=== PATIENT | male | born 1995 | race Caucasian/White ===

== ENCOUNTER → 2017-05-14 | Outpatient (CLI) | payer BC ==
--- NOTE | 2017-05-14 14:12 | RADIOLOGY REPORT (SQ) ---
EXAM DESCRIPTION: CT FACIAL AREA WITHOUT COMPLETED DATE/TIME: 05/14/2017 1:17 pm REASON FOR STUDY: NASAL POLYP, ANOSMIA, CHRONIC RHINITIS J33.9 NASAL POLYP, UNSPECIFIED R43.0 ANOS ASHLY J31.0 CHRONIC RHINITIS COMPARISON: None. TECHNIQUE: Noncontrasted images through the facial bones and orbits windowed for bone and soft tissu e. Additional coronal and sagittal reconstructed images reviewed. All images stored on PACS. All CT scanners at this facility use dose modulation, iterative reconstruction, and/or weight based d osing when appropriate to reduce radiation dose to as low as reasonably achievable (ALARA). [facility]: Dose Right [facility]: CareDose [facility]: Dose Right [facility]: Teradose 4D [facility]: [employer] RADIATION DOSE: 44.7mGy. LIMITATIONS: None. FINDINGS: FACIAL BONES: No fracture or bone lesion. ORBITS: Intact. No fracture. Symmetric intact globes and retroorbital soft tissues. PARANASAL SINUSES: There is almost complete opacification of the maxillary sinuses. The ethmoid air cells are opacified. The sphenoid sinuses are opacified. The frontal sinuses are opacified. There i s marked thickening in the nasal mucosa on the right. SOFT TISSUES: No mass or edema. INFERIOR BRAIN: Limited view. No acute findings. OTHER: No other significant finding. IMPRESSION: Pansinusitis. Findings as described. TECHNICAL DOCUMENTATION: JOB ID: [id number] Quality ID # [id number]: Final reports with documentation of one or more dose reduction techniques (e.g., Au tomated exposure control, adjustment of the mA and/or kV according to patient size, use of iterative reconstruction technique) 2010 [employer]- All Rights Reserved
== END ==
LOC: RAD 12:57
PROVIDERS: ATTEND Allergy & Immunology
DX: J33.9 Nasal polyp, unspecified (principal); R43.0 Anosmia; J31.0 Chronic rhinitis
CPT/HCPCS: 70486

== ENCOUNTER → 2017-08-06 | Outpatient (CLI) | payer BC ==
--- NOTE | 2017-08-06 15:44 | RADIOLOGY REPORT (SQ) ---
EXAM DESCRIPTION: CT SINUSES FOR ENT COMPLETED DATE/TIME: 08/06/2017 2:46 pm REASON FOR STUDY: NASAL POLYPS J33.9 NASAL POLYP, UNSPECIFIED COMPARISON: CT of the sinuses 05/14/2017 TECHNIQUE: Noncontrast scanning through the paranasal sinuses using bone algorithm. Reconstructed MPR images reviewed. All images stored on PACS. Images acquired for image guided surgery. All CT scanners at this facility use dose modulation, iterative reconstruction, and/or weight based d osing when appropriate to reduce radiation dose to as low as reasonably achievable (ALARA). [facility]: Dose Right [facility]: CareDose [facility]: Dose Right [facility]: Teradose 4D [facility]: [employer] RADIATION DOSE: 46.6 mGy. FINDINGS: NASAL PASSAGES: Near completely opacified. Only a small amount of aeration in the inferio r left nasal cavity present. OSTEOMEATAL UNITS AND NASOFRONTAL DUCTS: Ostiomeatal complexes are demineralized. There is complete opacification with soft tissue. These findings are best shown on coronal series 501, images 18-23. Bilateral nasofrontal ducts are completely opacified and bony outlines of the nasofrontal ducts are d emineralized on coronal series 501, images 16-20. MAXILLARY SINUSES: Completely opacified ETHMOID SINUSES: Completely opacified SPHENOID SINUSES: Completely opacified No sphenoethmoid air cells or pneumatized pterygoid recess. No pneumatized dorsal sella. FRONTAL SINUSES: Completely opacified MASTOID AIR CELLS: Clear. ORBITS: Normal and symmetrical. NASAL SEPTUM: Mild leftward nasal septal deviation bony spurring along the inferior half, best shown on coronal series 501, image 24. Small left nasal septal spur TEMPOROMANDIBULAR JOINTS: Normal. TURBINATES: No pneumatized turbinates. MUCOPERIOSTEAL THICKENING: Diffuse mucoperiosteal thickening in the frontal, sphenoid and maxillary sinuses MUCOCELE: No. OTHER: No other significant findings. IMPRESSION: Pansinusitis as above TECHNICAL DOCUMENTATION: JOB ID: [id number] Quality ID # [id number]: Final reports with documentation of one or more dose reduction techniques (e.g., Au tomated exposure control, adjustment of the mA and/or kV according to patient size, use of iterative reconstruction technique) 2010 [employer]- All Rights Reserved
== END ==
LOC: RAD 14:23
PROVIDERS: ATTEND Otolaryngology
DX: J33.9 Nasal polyp, unspecified (principal); J32.4 Chronic pansinusitis
CPT/HCPCS: 70486

== ENCOUNTER 2017-09-25 06:34 | Day surgery (SDC) | payer BC, OTHER ==
[~2017-09-25 06:34] MED LIST: CEFAZOLIN 2 GM/D5W RTU 2 GM/50 ML RTUPB IV PRN
[2017-09-25] MEDS ORDERED: FENTANYL CITRATE INJ/PF 100 MCG/2 ML AMPUL ONE ×2 (06:48→07:57)
[2017-09-25] MEDS ORDERED: MIDAZOLAM 2 MG/2 ML INJ ONE (06:48)
[2017-09-25] MEDS ORDERED: CARBOXYMETHYLCELLULOSE SOD 0.5% 0.4 ML DROPERETTE ONE (06:48)
[2017-09-25] MEDS ORDERED: ONDANSETRON HCL INJ/PF 4 MG/2 ML SDV ONE (06:49)
[2017-09-25] MEDS ORDERED: LIDOCAINE 2% INJ-PF (20 MG/ML) 10 ML AMPUL ONE (06:49)
[2017-09-25] MEDS ORDERED: DEXAMETHASONE SOD PHOS INJ 10 MG/1 ML VIAL ONE (06:49)
[2017-09-25] MEDS ORDERED: SUCCINYLCHOLINE CHLORIDE INJ 200 MG/10 ML VIAL ONE (06:50)
[2017-09-25] MEDS ORDERED: PROPOFOL INJ 200 MG/20 ML VIAL IV ONE (06:50)
[2017-09-25] MEDS ORDERED: ROCURONIUM BROMIDE INJ 50 MG/5 ML VIAL IV ONE (06:50)
[2017-09-25] MEDS ORDERED: DIPHENHYDRAMINE HCL 50 MG/ML VIAL ONE (07:00)
[2017-09-25] MEDS ORDERED: BUPIVACAINE HCL 0.5%/EPI 1:200000 INJ 1.8 ML CARTRIDGE ONE (07:07)
[2017-09-25] MEDS ORDERED: OXYMETAZOLINE HCL 0.05% NASAL SPRAY 15 ML BOTTLE ONE ×2 (07:07→09:04)
[2017-09-25] MEDS ORDERED: DEXMEDETOMIDINE INJ 80 MCG/20 ML VIAL IV ONE (07:57)
[2017-09-25] MEDS ORDERED: BUPIVACAINE HCL 0.5%-EPI 1:200000 INJ/PF 30 ML VIAL ONE (07:58)
--- NOTE | 2017-09-25 21:48 | [facility] OPERATIVE REPORT E ---
[facility] Operative Report NAME: TRISHA MONTANO AGE: 22Y DATE OF SURGERY: 09/25/2017 ROOM: PREOPERATIVE DIAGNOSES: 1. CHRONIC NASAL SINUS POLYP DISEASE. 2. PANSINUSITIS. 3. CHRONIC NASAL DYSPNEA. 4. NASAL SEPTAL DEVIATION, ACQUIRED. 5. BILATERAL INFERIOR TURBINATE HYPERTROPHY. POSTOPERATIVE DIAGNOSES: 1. CHRONIC NASAL SINUS POLYP DISEASE. 2. PANSINUSITIS. 3. CHRONIC NASAL DYSPNEA. 4. NASAL SEPTAL DEVIATION, ACQUIRED. 5. BILATERAL INFERIOR TURBINATE HYPERTROPHY. OPERATION PERFORMED: 1. Bilateral image guidance functional endoscopic sinus surgery with rigid surgical endoscopy. 2. Bilateral nasal polypectomies with tissue removal as specimen with rigid surgical endoscopy. 3. Bilateral maxillary antrostomies with tissue removal with rigid surgical endoscopy. 4. Bilateral total ethmoidectomies with tissue removal (anterior and posterior ethmoidectomies), with rigid surgical endoscopy. 5. Bilateral frontal sinusotomies. 6. Bilateral sphenoidotomies. 7. Septoplasty. 8. Bilateral inferior turbinate reduction using a submucous resection technique. 9. Bilateral middle turbinate reduction with rigid surgical endoscopy. SURGEON: DYANA CHOI D.O. ANESTHETIC: General endotracheal tube. ANESTHESIA STAFF: Andre Peña CRNA COMPLICATIONS: None. DRAINS: None. SPONGE COUNT: Verified. NEEDLE COUNT: Verified. MATERIALS FORWARDED SPECIMEN: 1. Bilateral maxillary sinus tissue/polyp tissue. 2. Bilateral anterior and posterior ethmoid sinus tissue/polyp tissue. 3. Bilateral nasal passage polyp tissue. FINDINGS: 1. Extensive nasal sinus polyp disease, right greater than left. On the right, nasal polyps were encountered at the nasal vestibule and extended through to the nasopharynx and all sinuses were involved. 2. On the left, there was extensive sinus and nasal polyp disease as well with all sinuses involved and most of the left nasal passage. 3. Nasal septal deviation involving bone and cartilage. 4. Bilateral inferior turbinate hypertrophy. 5. The middle turbinates were excessively floppy in nature as polyps were debrided and they were obstructing the maxillary antrostomy and ethmoidectomy surgical sites and therefore, the anterior aspect on each side was resected. INDICATIONS: This is a 22-year-old white male who was seen and evaluated in the [place] [facility] office. The patient had been referred for and he complained of a longstanding history of sinus and nasal polyp disease over the years. The patient reports severe difficulty with nasal breathing, and has poor sense of smell and taste. The patient has wanted to have these issues addressed over the years. CT sinus imaging was obtained with pansinusitis noted and extensive sinus and nasal polyp disease noted. Clinic endoscopy revealed extensive bilateral nasal polyp disease. After extensive discussion with the patient, recommendation and plan was to proceed with image guidance functional endoscopic sinus surgery with nasal and sinus polypectomies and tissue to be sent for permanent pathology evaluation, aeration of the sinuses, use of Propel steroid eluting stents on each side, septoplasty, and inferior and middle turbinate reductions. The procedures and all of their risks and complications were all discussed in detail with the patient. He voided an understanding of the described surgical plan, agreed to proceed, and consent was obtained. PROCEDURE: The patient was taken to the main operating room and placed on the operating room tablet in the supine position. Appropriate monitors were placed. Using mask and IV access, general anesthesia was induced. The patient was transorally intubated without difficulty. He was next positioned and prepped for sinus and nasal surgery. The patient underwent injection of local anesthetic with epinephrine to establish a nasal block. There were 2 Afrin-soaked neuro patties placed per nasal passage. The image guidance system was set up and tested appropriately before beginning the case. At this point, the patient was prepped and draped in the usual fashion for nasal and sinus surgery. The Afrin-soaked neuro patties were removed on each side. Next, with use of sinus instrumentation, 0-degree rigid endoscopy, and the turbinate microdebrider system at a setting of 3000 rpm, the nasal passage polypectomies were performed with tissue passed off for permanent pathology evaluation. At this point, the septoplasty portion of the case was initiated. There was a hemitransfixion incision performed with elevation of the mucoperichondrium and periosteal flaps without difficulty. The bony cartilaginous junction was identified and divided with the most deviated portions of septal cartilage and bone removed. There was a greater than 1.5 x 1.5 cm cartilaginous L strut that was preserved. At this point, the turbinate bipolar wand was used to make 2 passes in each side. A Osmel elevator was used to outfracture each inferior turbinate. The anterior aspect was entered with Levi scissors followed by elevation of tissues with a Mercer elevator. Next, the turbinate microdebrider system at a setting of 1500 rpm was used to perform a submucous resection on each side. The anterior aspect of redundant/excessive mucosa was trimmed and margins were reapproximated with 5-0 chromic suture. At this point, the bilateral maxillary antrostomies were performed with tissue removal without difficulty. The anterior and posterior ethmoidectomies were performed with tissue removal without difficulty. Next, the frontal sinusotomies were performed without difficulty. This was followed by the sphenoidotomies being performed. At this point, the nose was thoroughly irrigated and suctioned. Next, the Propel contour frontal sinus stents were placed, 1 per side. Next, the Propel ethmoid stents were placed, 1 per side. Once complete, the previously removed septal cartilage was placed back between the mucosal flaps to be banked. The hemitransfixion incision was reapproximated with chromic suture. One Connors silicon nasal splint with Bacitracin ointment was placed per side. These were secured at the caudal aspect with 4-0 Prolene suture. Next, Floseal was placed into each nasal passage. The patient's nose was then cleaned and dried. The patient was returned to the anesthesia staff and was allowed to emerge from general anesthesia. The patient was extubated in the main operating room and was then returned to the post anesthesia recovery unit in stable condition. There were no complications. DICTATING PHYSICIAN: DYANA CHOI D.O. [id number] PHY#: [id number] ID: [id number] JOB#: [id number] ACCT: [id number] cc:DYANA CHOI D.O. >
== END 2017-09-25 15:00 | disposition home or self-care (01) ==
LOC: SC 06:34
PROVIDERS: ATTEND Otolaryngology
PROC: 09BM4ZZ Excision of Nasal Septum, Percutaneous Endoscopic Approach (ICD-10-PCS; 2017-09-25)
PROC: 09BT4ZZ Excision of Left Frontal Sinus, Percutaneous Endoscopic Approach (ICD-10-PCS; 2017-09-25)
PROC: 09TL8ZZ Resection of Nasal Turbinate, Via Natural or Artificial Opening Endoscopic (ICD-10-PCS; principal; 2017-09-25 07:30)
DX: J33.8 Other polyp of sinus (principal); J34.2 Deviated nasal septum; J34.3 Hypertrophy of nasal turbinates; J32.2 Chronic ethmoidal sinusitis; J32.0 Chronic maxillary sinusitis; J32.8 Other chronic sinusitis; R09.82 Postnasal drip; R06.09 Other forms of dyspnea; J33.9 Nasal polyp, unspecified
CPT/HCPCS: 30140; 30520; 31276; 31256; 31287; 31237; 31255; 88304 ×2; J2250; J3490 ×7; J1200; J3010; J0330; J2405; J2704; J1100; J0690; 160